=== PATIENT | female | born 1940 | race Caucasian/White ===

== ENCOUNTER 2023-11-18 09:35 | Outpatient (CLI) | payer MEDICARE ==
[2023-11-18 10:32] LABS: Hematocrit 33.1 % (34.9-44.5); Hemoglobin 11.3 g/dL (12.0-15.5); Mean Corpuscular HGB CONC 34.1 g/dL (32.0-36.0); Mean Corpuscular Hemoglobin 30.6 pg (27.0-33.0); Mean Corpuscular Volume 89.7 fL (81.6-98.3); Mean Platelet Volume 12.9 fL (7.4-10.4); Platelet Count 127 10x3/uL (150-450); RBC Distribution Width 14.9 % (11.5-14.5); Red Blood Cell (RBC) Count 3.69 10x6/uL (3.90-5.03); White Blood Cell (WBC) Count 3.9 10x3/uL (3.5-10.5)
[2023-11-18 10:33] LABS: MDiff Complete? YES; Platelet Adequacy Comment Appears Decreased; RBC Morph Comment Within Normal Limits
[2023-11-18 10:46] LABS: Anion Gap 12 mmol/L (10-20); BUN (Urea Nitrogen) 23 mg/dL (9.8-20.1); Calc. Creatinine Clearance 0 mL/min (70-130); Calcium 8.3 mg/dL (7.8-10.44); Carbon Dioxide 26 mmol/L (23-31); Chloride 97 mmol/L (98-107); Estimated GFR 69; Glucose 89 mg/dL (83-110); Potassium 4.4 mmol/L (3.5-5.1); Sodium 131 mmol/L (136-145)
[2023-11-18 10:58] LABS: Band 7 % (5-11); Eosinophils 2 % (0-10); Lymphocytes 20 % (21-51); Monocytes 17 % (0-10); Neutrophil 53 % (42-75)
== END 2023-11-18 09:36 | disposition home or self-care (01) ==
LOC: LABBT 09:35
PROVIDERS: ATTEND Orthopaedic Surgery
DX: Z01.818 Encounter for other preprocedural examination (principal); M19.012 Primary osteoarthritis, left shoulder; M25.312 Other instability, left shoulder
CPT/HCPCS: 80048; 85025; 93005; 93010

== ENCOUNTER 2023-11-21 05:34 | Observation (INO) | payer MEDICARE ==
[2023-11-21] MEDS ORDERED: Sodium Chloride 0.9% 100 ML ONE ×2 (06:03→07:01)
[2023-11-21] MEDS ORDERED: Tranexamic Acid 1,000 MG/10 ML VIAL ONE (06:03)
[2023-11-21] MEDS ORDERED: Vancomycin 1 GM/200 ML (FROZEN) BAG ONE (06:03)
[2023-11-21] MEDS ORDERED: Midazolam HCl 2 mg/2 ml Vial ONE (06:21)
[2023-11-21] MEDS ORDERED: fentaNYL 50 mcg/mL 1 mL Vial ONE ×4 (06:21→12:10)
[2023-11-21] MEDS ORDERED: Lidocaine 1% (PF) 30 ML VIAL ONE (06:22)
[2023-11-21] MEDS ORDERED: Bupivacaine PF 0.5% 30 ML VIAL ONE (06:52)
[2023-11-21] MEDS ORDERED: CEFAZOLIN 2 GM VIAL ONE (07:01)
[2023-11-21] MEDS ORDERED: Lidocaine 2% PF 5 ML VIAL ONE (07:11)
[2023-11-21] MEDS ORDERED: PROPOFOL 20 ML ONE (07:11)
[2023-11-21] MEDS ORDERED: Rocuronium Bromide 10 MG/ML (10ML VIAL) ONE (07:12)
[2023-11-21] MEDS ORDERED: Ondansetron HCl/PF 4 MG/2 ML Vial IVP PRN (08:24)
[2023-11-21] MEDS ORDERED: Promethazine HCl 25 MG/ML VIAL IM PRN ×2 (08:24→10:45)
[2023-11-21] MEDS ORDERED: SUGAMMADEX SODIUM 200 MG/2 ML VIAL ONE (09:20)
[2023-11-21] MEDS ORDERED: Ondansetron PF 4 MG/2 ML Vial IVP PRN ×2 (10:45→13:29)
[2023-11-21] MEDS ORDERED: Zolpidem Tartrate 5 MG TAB PO PRN (10:45)
[2023-11-21] MEDS ORDERED: HYDROcodone/Acetaminophen 5/325 mg Tablet PO PRN (10:45)
[2023-11-21] MEDS ORDERED: Ropivacaine 0.2% 550 ML 550 ML NERVE BLCK SCH (10:45)
[2023-11-21] MEDS ORDERED: traMADol HCl 50 MG TAB PO PRN ×2 (10:45)
[2023-11-21] MEDS ORDERED: diphenhydrAMINE 50 MG CAP PO PRN (13:29)
[2023-11-21] MEDS ORDERED: Ondansetron ODT 4 MG TAB PO PRN (13:29)
[2023-11-21] MEDS ORDERED: Acetaminophen 325 MG TAB PO PRN (13:29)
[2023-11-21] MEDS ORDERED: Bisacodyl 10 MG SUPP PR PRN (13:29)
[2023-11-21] MEDS ORDERED: Milk Of Magnesia 30 ML UDCUP PO PRN (13:29)
[2023-11-21 14:37] VITALS: BMI 25.1
[2023-11-21] MEDS: CEFAZOLIN 2 GM in Sodium Chloride 0.9% 100 ML IVPB SCH (15:25)
[2023-11-21] MEDS: Sodium Chloride 0.9% 1,000 ML IV SCH (15:25)
[2023-11-21] MEDS: ALPRAZolam 0.5 MG TAB PO SCH (17:13)
[2023-11-21] MEDS: Ketorolac Tromethamine 30 MG (1 mL) VIAL IVP PRN (19:36)
[2023-11-21] MEDS: Allopurinol 100 MG TAB PO SCH (20:44)
[2023-11-21] MEDS: Temazepam 15 MG CAP PO SCH (20:44)
[2023-11-21] MEDS: Carvedilol 6.25 MG TAB PO SCH (20:44)
[2023-11-21] MEDS: Atorvastatin Calcium 40 MG TAB PO SCH (20:44)
[2023-11-21] MEDS: HYDROcodone/Acetaminophen 5/325 mg Tablet PO PRN (20:45)
[2023-11-21] MEDS: Gabapentin 300 MG CAP PO SCH (20:52)
[2023-11-21] MEDS ORDERED: Gabapentin 300 MG CAP PO SCH ×2 (21:00)
[2023-11-22] MEDS: Levothyroxine Sodium 112 MCG TAB PO SCH (06:12)
[2023-11-22] MEDS: Potassium Chloride 20 MEQ TAB PO SCH (08:48)
[2023-11-22] MEDS: Empagliflozin 25 MG TAB PO SCH (08:48)
[2023-11-22] MEDS: Clopidogrel Bisulfate 75 MG TAB PO SCH (08:49)
[2023-11-22] MEDS: Pantoprazole DR 40 MG TAB PO SCH (08:49)
[2023-11-22] MEDS: Estradiol 1 MG TAB PO SCH (08:49)
[2023-11-22] MEDS: Aspirin 81 mg Enteric Coated Tablet PO SCH (08:49)
[2023-11-22] MEDS: Furosemide 40 MG TAB PO SCH (08:49)
[2023-11-22] MEDS: Hydroxychloroquine Sulfate 200 MG TAB PO SCH (08:49)
[2023-11-22] MEDS ORDERED: Gabapentin 300 MG CAP PO SCH (09:00)
[2023-11-22 10:13] VITALS: BP 105/64; TEMP 98.3
== END 2023-11-22 12:24 | disposition home or self-care (01) ==
LOC: SDC 05:34 → SURG A 13:11
PROVIDERS: ADMIT Orthopaedic Surgery; ATTEND Orthopaedic Surgery
PROC: 0RRK00Z Replacement of Left Shoulder Joint with Reverse Ball and Socket Synthetic Substitute, Open Approach (ICD-10-PCS; principal; 2023-11-21)
PROC: 0LS40ZZ Reposition Left Upper Arm Tendon, Open Approach (ICD-10-PCS; 2023-11-21)
PROC: 3E0T3BZ Introduction of Anesthetic Agent into Peripheral Nerves and Plexi, Percutaneous Approach (ICD-10-PCS; 2023-11-21)
DX: M19.012 Primary osteoarthritis, left shoulder (principal); M75.22 Bicipital tendinitis, left shoulder; I50.9 Heart failure, unspecified; E78.5 Hyperlipidemia, unspecified; Z91.040 Latex allergy status; Z88.2 Allergy status to sulfonamides; Z90.49 Acquired absence of other specified parts of digestive tract; Z90.710 Acquired absence of both cervix and uterus; Z96.653 Presence of artificial knee joint, bilateral; Z79.82 Long term (current) use of aspirin; Z79.899 Other long term (current) drug therapy
CPT/HCPCS: 23472; 24340; 64415; 97116; 97535; A4306; C1713 ×5; C1776 ×3; J1885 ×2; J2001 ×2; J2704; J2795; J3010; J3370; J3490 ×2; J7050; J0665; J2250